=== PATIENT | male | born 1990 | race Caucasian/White ===

== ENCOUNTER 2017-08-21 19:57 | Emergency (ER) | payer MEDICAID ==
[~2017-08-21 19:57] MED LIST: ABIL30TA5 PO; ADDE20XR PO; CLON.5 PO; CORTIS10A LEFT EAR; LITH300C2 PO; QUET400XR PO; QUET50XR PO
[2017-08-21 19:58] VITALS: BP 128/74; PULSE 69; RESP 16; TEMP 98.1; O2SAT 100
[2017-08-21] MEDS ORDERED: BACT800T5 PO (21:21)
[2017-08-21] MEDS ORDERED: NYSTCRE29 TOPICAL (21:21)
--- NOTE | 2017-08-21 21:25 | PD ---
HPI Chief Complaint: Complaint Time Seen by Provider: 21:17 Travel History International Travel<30 days: No Contact w/Intl Traveler<30days: No Traveled to known affect area: No History of Present Illness HPI 27-year-old white male presents to emergency department with complains of a painful rash on his right scrotum for the past week. He denies any fever or chills. No nausea vomiting. He cannot report any causative agent. Symptoms are moderate. No alleviating factors. No urinary symptoms. No burning with urination or frequency. No discharge from penis. PFSH Past Medical History ADHD: Yes Bipolar Disorder: Yes Anxiety: Yes Cancer: No Cardiovascular Problems: No Diminished Hearing: No Endocrine: No Gastrointestinal Disorders: No Genitourinary: No Heparin Induced Thrombocytopen: No Immune Disorder: No Implanted Vascular Access Dvce: No Musculoskeletal: No Neurologic: No Psychiatric: Yes (BIPOLAR,ATTENTION DEFICIT,HYPERACTIVITY D/O) Reproductive: No Respiratory: No Schizophrenia: Yes Sickle Cell Disease: No ?: Not Past Surgical History Surgical History: No Previous Surgery Other Surgery: No Social History Alcohol Use: No Tobacco Use: No Substance Use: No Allergies-Medications (Allergen,Severity, Reaction): Coded Allergies: cefaclor (Unverified Allergy, Mild, 08/21/17) Reported Meds & Prescriptions Reported Meds & Active Scripts Active Nystatin-Triamcinolone 100,000-0.1 Unit/Gm Cream 1 Applic TOPICAL BID Bactrim DS (Sulfamethoxazole-Trimethoprim) 800-160 Mg Tab 1 Tab PO BID Seroquel XR (Quetiapine Fumarate) 50 Mg Tab 50 Mg PO DAILY Seroquel XR (Quetiapine Fumarate) 400 Mg Tab 400 Mg PO WITH DINNER [place] Carbonate 300 Mg Cap 300 Mg PO BID Klonopin (Clonazepam) 0.5 Mg Tab 0.5 Mg PO 4PM, HS Abilify (Aripiprazole) 30 Mg Tab 30 Mg PO DAILY Adderall Xr 24 HR (Amphetamine/Dextroamphetamine) 20 Mg Cap 20 Mg PO 2 PO AM fill after 12/04/16 Adderall Xr 24 HR (Amphetamine/Dextroamphetamine) 20 Mg Cap 20 Mg PO 2 PO AM fill after 11/06/16 Adderall Xr 24 HR (Amphetamine/Dextroamphetamine) 20 Mg Cap 20 Mg PO 2 IN AM Once daily in the morning. Cortisporin Otic (Neomycin/Polymyxin/Hydrocortisone) 10 Ml Susp 4 Drop LEFT EAR Q6 10 Days FOR 7 DAYS Review of Systems Except as stated in HPI: all other systems reviewed are Neg Physical Exam Narrative GENERAL: This is a well-nourished, well-developed patient, in no apparent distress. SKIN: Patient has some erythema superficial weeping and irritation to the right hemiscrotum. There is some scaling and crusting. Scrotal contents are unremarkable. Penis is unremarkable. HEAD: Atraumatic. Normocephalic. EYES: PERRL, EOMI, no discharge or injection. No scleral icterus. EARS: Clear NOSE: Nasal turbinates appear normal. THROAT: Mucosa pink and moist. Airway patent. NECK: Trachea midline. supple, moves head freely. LUNGS: Clear to auscultation. CV: Regular in rhythm. ABDOMEN: Soft nontender. EXT: No clubbing cyanosis or edema. Data Data Last Documented VS Vital Signs Date Time Temp Pulse Resp B/P (MAP) Pulse Ox O2 Delivery O2 Flow Rate FiO2 08/21/17 19:58 98.1 69 16 128/74 (92) 100 Room Air Orders Orders Ed Discharge Order (08/21/17 21:20) Sulfamet-Trimeth Ds 800-160 Mg (Bactrim (08/21/17 21:30) MDM Medical Decision Making Medical Screen Exam Complete: Yes Emergency Medical Condition: Yes Medical Record Reviewed: Yes Differential Diagnosis MDM: High Differential diagnoses: Abscess, folliculitis, cellulitis, lymphangitis, abrasion, contact dermatitis, tinea cruris, impetigo Narrative Course Patient is given Bactrim DS. Patient appears to have tinea cruris with a secondary impetigo Diagnosis Primary Impression: Tinea cruris Additional Impression: Impetigo Patient Instructions: General Instructions Additional Instructions: Rest. Elevation. keep clean and dry. Daily wound care with soap, water and Neosporin. Medications as directed Follow-up with a primary care doctor in one week. Return to the ER for any problems. Med/Other Pt SpecificInfo: Prescription(s) given Scripts Nystatin-Triamcinolone (Nystatin-Triamcinolone) 100,000-0.1 Unit/Gm Cream 1 APPLIC TOPICAL BID for Infection, #15 GM 1 Refill Prov: Thania Abdullahi DO 08/21/17 Sulfamethoxazole-Trimethoprim (Bactrim DS) 800-160 Mg Tab 1 TAB PO BID for Infection, #14 TAB 0 Refills Prov: BradlyThania Mcbride DO 08/21/17 Disposition: 01 DISCHARGE HOME Condition: Stable Mil Burgess Aug 21, 2017 21:25
[2017-08-21] MEDS ORDERED: SULFAMETHOXAZOLE-TRIMETHOPRIM DS 800-160 MG TAB PO ONE (21:30)
== END 2017-08-21 22:01 | disposition home or self-care (01) ==
LOC: NEPK 19:57
DX: B35.6 Tinea cruris (principal); L01.00 Impetigo, unspecified; F31.9 Bipolar disorder, unspecified; F41.9 Anxiety disorder, unspecified; F20.9 Schizophrenia, unspecified; Z79.899 Other long term (current) drug therapy
CPT/HCPCS: 99284